=== PATIENT | female | born 1985 | race Caucasian/White ===

== ENCOUNTER 2017-02-16 14:08 | Emergency (ER) | payer BC ==
[2017-02-16] MEDS ORDERED: Sodium Chloride 0.9% 1,000 ML IV ONE (15:20)
[2017-02-16] MEDS ORDERED: HYDROmorphone 2 mg/mL 1mL Vial IVP STA (15:22)
--- NOTE | 2017-02-16 15:25 | ED Physician Chart ---
ED Chief Complaint/HPI - Patient Information Date Seen:: 02/16/17 Time Seen:: 15:05 Chief Complaint:: headache History of Present Illness:: Patient developed diffuse cephalgia this am. Headache was severe at onset but gradually worsened. Has vomited 15-20 times. Headache lpain increased by supine position. This is the patient's worst headache ever. No chills or fever. Allergies:: Allergies Allergy/AdvReac Type Severity Reaction Status Date / Time No Known Allergies Allergy Verified 02/16/17 14:43 Vitals:: Vital Signs - 8 hr 02/16/17 14:36 Temp 98.3 F HR 109 RR 16 BP 148/88 O2 Sat % 100 Historian:: Patient Review:: Nurse's Note Reviewed ED Review of Systems - Review of Systems General/Constitutional: No fever, No chills Skin: No skin lesions Head: Headache Eyes: No loss of vision ENT: No earache, No nasal drainage, No sore throat, No tinnitus Neck: No neck pain Cardio Vascular: No chest pain, No edema Pulmonary: SOB GI: Nausea, Vomiting G/U: No dysuria, No hematuria Musculoskeletal: No bone or joint pain, No back pain, No muscle pain Endocrine: No polyuria, No polydipsia Psychiatric: No prior psych history, No depression Hematopoietic: No bruising Allergic/Immuno: No urticaria Neurological: No focal symptoms, No confusion, No vertigo ED Past Medical History - Past Medical History Past Medical History: Other (migraine headaches which are usually bifrontal) Family History: None Social History: Non Smoker, No Alcohol Surgical History: None Psychiatricy History: None Medication: Reviewed ED Physical Exam - Physical Examination General/Constitutional: Well-developed, well-nourished, Alert Other Gen/Cons comments:: vomited in triage Head: Atraumatic Eyes: Lids, conjuctiva normal, PERRL Other Eyes comments:: optic disks sharp Skin: Nl inspection, No rash, No skin lesions, No ecchymosis, Well hydrated, No lymphadenopathy ENMT: External ears, nose nl, TM canals nl, Nasal exam nl, Lips, teeth, gums nl , Oropharynx nl, Tonsils nl Neck: No nuchal rigidity Respiratory: Nl effort/Exclusion, Clear to Auscultation, No Wheeze/Rhonchi/Rales Cardio Vascular: RRR, No murmur, gallop, rubs GI: No tenderness/rebounding/guarding, No organomegaly, No hernia, Normal BS's, Nondistended, No mass/bruits : No CVA tenderness Extremities: Normal digits & nails Neuro/Psych: Alert/oriented, Judgement/insight normal, Mood normal, No focal deficits Misc: Normal back ED Assessment - Assessment General Assessment: at 1720 patient's headache much improved. ED Septic Shock - . Is Septic Shock (SBP<90, OR Lactate>4 mmol\L) present?: No - <6hrs of presentation: Vital Signs: Vital Signs - 8 hr 02/16/17 14:36 Temp 98.3 F HR 109 RR 16 BP 148/88 O2 Sat % 100 ED Reassessment (Disposition) - Reassessment Reassessment Condition:: Improved - Diagnosis Diagnosis:: cephalgia - Aftercare/Follow up Instructions Aftercare/Follow-Up Instructions:: Refer to Discharge Instructions Medication Prescribed:: Zofran 4 mg ODT #10 Sig 1 Q 4-6 hr PRN; Imitrex 100 mg #9 Sig 1/2-1 QD PRN headacye; [place] 10/325 #12 Sig QID PRN headache. - Patient Disposition Discharge/Transfer:: Home Condition at Disposition:: Stable, Improved
[2017-02-16] MEDS ORDERED: HYDROmorphone 2 mg/mL 1mL Vial ONE (15:37)
== END 2017-02-16 18:21 | disposition home or self-care (01) ==
LOC: ER 14:08
DX: R51 Headache (principal); G43.909 Migraine, unspecified, not intractable, without status migrainosus
CPT/HCPCS: 99284; 96374; 96375; 81025; J8540; J2405; J1170; J7030; Z7502